=== PATIENT | male | born 1980 | race Caucasian/White ===

== ENCOUNTER 2020-01-03 13:33 | Emergency (ER) | payer SELFPAY ==
[2020-01-03 14:27] VITALS: BP 139/86; PULSE 97; RESP 18; TEMP 36.7; O2SAT 100; BMI 23.3
--- NOTE | 2020-01-03 14:35 | ED_ITS ---
Entered by Marissa Galeana, acting as scribe for Bita Cortes HPI - Headache General: Chief Complaint: Headache Stated Complaint: head pain Time Seen by Provider: 01/03/20 14:34 Source: patient Mode of arrival: ambulatory Limitations: no limitations History of Present Illness: HPI Narrative: 39 yo Male presents to ED with complaint of headache. Pt states that he was seen on November 20 for a head injury but only had and xray of his facial bones done. Pt states that he has had a headache since his surgery and was told to come in to the ED to have a CT scan of his head done to make sure that there is no bleeding in his head. MD elicited complaint: headache Pertinent past history: recent trauma Onset (ago): month(s) Onset description: gradually Location: diffuse Pain scale (0-10): 2 Exacerbating factors: none Relieving factors: nothing Context: recent head injury Associated symptoms: Reports no associated symptoms; Deny chest pain, confusion, diaphoresis, fever(s), malaise, nausea, pre-syncope, rash, syncope or vomiting Treatments prior to arrival: none Review of Systems General: Reports: other (negative unless marked) Const: Denies: fever, chills, body aches, fatigue, malaise or diaphoresis Eyes: Denies: change in vision or blurry vision ENMT: Denies: throat pain, painful swallowing, hoarseness, ear pain, ear discharge, Change in hearing or nasal discharge Card: Denies: chest pain, palpitations, irregular heart rhythm, syncope, pre- syncope, shortness of breath on exertion or shortness of breath when lying down Resp: Denies: shortness of breath, productive cough, non-productive cough, wheezing, coughing up blood or chest congestion GI: Denies: abdominal pain, nausea, vomiting, vomiting blood, coffee grounds in vomit, diarrhea, constipation, cramping, blood in stool or black tarry stool : Denies: flank pain, difficulty urinating, painful urination, urinary frequency, urinary urgency, decreased urine ouput, urinary incontinence or blood in urine Musc: Denies: neck pain, back pain, extremity pain, extremity swelling, joint pain, joint swelling, joint warmth or joint stiffness Skin/Breast: Denies: rash, skin tenderness or yellow skin Neuro: Reports: headache; Denies: numbness in extremities, weakness in extremities, changes in sensation, lack of coordination, difficulty walking, dizziness, vertigo or confusion Endo: Denies: excessive thirst, tired all the time, cold intolerance, excessive sweating, flushing or hot flashes Mikal/Lymph: Denies: easy bruising, easy bleeding, petechiae or enlarged lymph nodes All/Imm: Denies: hives, throat swelling, tongue swelling, facial swelling or acute wheezing PFSH ED PFSH: Statuses (acute, chronic, etc) shown below reflect problem list status as previously entered and may not be historically accurate Social History Smoking and tobacco status: never smoked Physical Exam Const: COMMON NORMALS: no apparent distress, oriented x3, no limitations, healthy appearing and well nourished EXAM LIMITATIONS: no altered mental stat us GENERAL APPEARANCE: cooperative, well kempt and well developed ORIENTATION/CONSCIOUSNESS: Yes awake HENMT: COMMON NORMALS: normocephalic, head/scalp atraumatic, hearing grossly normal bilaterally, external ears normal, EAC's normal, external nose normal and moist oral mucous membranes HEAD & SCALP: normal to inspection, normocephalic and atraumatic FACE & SINUS: normal facial exam and face symmetric NOSE: external nose normal and nares normal EXTERNAL EAR: Yes external ears normal EXTERNAL AUDITORY CANAL: EAC's normal MOUTH: oral and palatal mucosa normal and tongue normal Eye: COMMON NORMALS: PERRL, EOMs intact bilaterally, conjunctivae normal and no scleral icterus GENERAL EYE: normal appearance of both eyes and normal light reflex CONJUNCTIVA: Yes conjunctivae normal SCLERA: sclerae normal CORNEA: Yes corneas normal PUPIL: Yes PERRL DIRECT OPHTHALMOSCOPY: Yes normal light reflex Neck/C-Spine: COMMON NORMALS: full ROM, no lymphadenopathy, supple, no meningeal signs and no JVD GENERAL: Yes normal visual inspection and Yes trachea midline CERVICAL SPINE: Yes cervical ROM normal Chest: COMMONS NORMALS: inspection of chest normal and palpation of chest normal Resp: COMMON NORMALS: normal respiratory effort, no retractions, no use of accessory muscles and clear to auscultation bilaterally EFFORT & INSPECTION: Yes able to speak in complete sentences AUSCULTATION: clear to auscultation bilaterally Cardio: COMMON NORMALS: no JVD, regular rate, regular rhythm, S1 normal heart sound, S2 normal heart sound, no gallops, no clicks, no murmurs and no rub JUGULAR VENOUS DISTENTION: no JVD RATE: regular rate RHYTHM: regular rhythm HEART SOUNDS: S1 normal and S2 normal GI: COMMON NORMALS: soft to palpation, non-tender, no hepatosplenomegaly and no masses INSPECTION: Yes normal to inspection PALPATION: Yes soft and Yes no hepatosplenomegaly : COMMON NORMALS: Yes no CVA tenderness BLADDER/KIDNEY EXAM: Yes no CVA tenderness Back/Pelvis: COMMON NORMALS: no CVA tenderness, thoracic and lumbar spine normal to inspection, no thoracic nor lumbar tenderness and thoraco-lumbar ROM normal Extremity: COMMON NORMALS: normal to inspection, full ROM, normal capillary refill, no joint enlargement, no clubbing, cyanosis or edema and no calf tenderness Neuro: COMMON NORMALS: oriented x3, CN's II-XII intact bilaterally, moves all extremities, no focal motor deficits and no sensory deficits noted MENINGEAL SIGNS: Yes no meningeal signs Psych: COMMON NORMALS: mental status grossly normal, thought process normal, cooperative, affect normal, speech normal and activity/motor behavior normal APPEARANCE: Yes well kempt SPEECH: Yes normal speech THOUGHT PROCESS: normal thought process Skin: COMMON NORMALS: no rashes or lesions noted, skin turgor normal, no jaundice, no petechiae and no mottling GENERAL SKIN EXAM: no rashes or lesions noted and turgor normal Course Vital Signs: Vital signs: Vital Signs Temperature 98.0 F 01/03/20 14:27 Pulse Rate 93 01/03/20 15:58 Respiratory Rate 16 01/03/20 15:58 Blood Pressure 134/60 01/03/20 15:58 Pulse Oximetry 98 01/03/20 15:58 MDM - Headache MDM Narrative: Medical decision making narrative: Looking back on the patient's previous here he did have a CT of his head although he did not think this was the case. It is possible his recurrent headaches are coming from just his facial injuries. He is satisfied that his head CT today is normal. He declines any further evaluation and care and would like to be discharged. He agrees to return should his symptoms change or worsen but at this time he is feeling better and wants to be discharged. Imaging Data^: CT Head: Radiologist's impression: [address] [place] [address] CT Scan Report Signed Patient: Bre Valentin #: [id number] : 1980Acct#:[id number] Age/Sex: 39 / MADM Date: 01/03/20 Loc: ERRoom/Bed: Attending Dr: Ordering Provider/Ordering MD: Bita Cortes DO Date of Service: 01/03/20 Procedure(s): CT head wo con* [id number] Accession Number(s): [id number] Report Number: [id number] WS: [id number] CT HEAD NONCONTRAST HISTORY: POMPA, vision loss s/p injury in Nov 2019 TECHNIQUE: Contiguous axial imaging performed through the brain in 2.5 mm imaging. Bone and soft tissue windows. Sagittal and coronal reformats reviewed. All CT scans at [facility] use at least one of these dose optimization techniques: automated exposure control; mA and/or kV adjustment per patient size (includes targeted exams where dose is matched to clinical indication); or iterative reconstruction. DLP: 837.53 mGy.cm COMPARISON: 11/17/2019 No acute intracranial hemorrhage, midline shift or mass effect. No atrophy or prior infarcts or herniation. Ventricles: Normal size with no hydrocephalus. No inferior displacement of cerebellar tonsils. Paranasal sinuses: Moderate mucoperiosteal thickening throughout the ethmoid air cells bilaterally. Mild mucoperiosteal thickening in the frontal ethmoid recesses and LEFT sphenoid sinus. Mastoid air cells: Well pneumatized. Calvarium and scalp: Skull is intact with no soft tissue edema or swelling. Limited visualization of the orbits and globes and extraocular muscles. CT/CT head wo con* [id number] IMPRESSION: 1. No acute intracranial hemorrhage or edema. 2. Ethmoid sinus disease. Dictated By:Dotty Matson DO Signed By:Dotty Matson DOSigned Date/Time:01/03/20 1523 DD/ 1518 Discharge Plan Discharge Patient Disposition: Home, Self-Care Clinical Impression: Headache Qualifiers: Headache type: unspecified Headache chronicity pattern: chronic headache Intractability: not intractable Qualified Code(s): R51 - Headache Condition: Stable Discharge Orders: Discharge Order (Routine); Ordered 01/03/20 Ordered By: Bita Cortes Referrals: Maeve Garcia FNP [Primary Care Provider] - 1-3 days Discharge Diet: Usual diet Discharge Activity: Increase activity as tolerated Patient Instructions: Acute Headache (ED) Activity Restrictions/Additional Instructions: Please return to the ER immediately for any of the signs or symptoms listed on your discharge instruction sheets, worsening/changing of your symptoms, you are not getting better as quickly as expected, or for ANY other cause or concerns. Discharge Date/Time: 01/03/20 15:58 Coding Level of Care Code ED Technical Sourcing Recruiter for Chg Fwd Exam Problem Focused The documentation recorded by the Kervin beasley Carmen, accurately reflects the service I personally performed and the decisions made by Sophia garcia Eli N Jan 03, 2020 13:33
--- NOTE | 2020-01-03 14:36 | CT_ITS ---
WS: [id number] CT HEAD NONCONTRAST HISTORY: POMPA, vision loss s/p injury in Nov 2019 TECHNIQUE: Contiguous axial imaging performed through the brain in 2.5 mm imaging. Bone and soft tiss ue windows. Sagittal and coronal reformats reviewed. All CT scans at [facility] use at le ast one of these dose optimization techniques: automated exposure control; mA and/or kV adjustment pe r patient size (includes targeted exams where dose is matched to clinical indication); or iterative r econstruction. DLP: 837.53 mGy.cm COMPARISON: 11/17/2019 No acute intracranial hemorrhage, midline shift or mass effect. No atrophy or prior infarcts or herniation. Ventricles: Normal size with no hydrocephalus. No inferior displacement of cerebellar tonsils. Paranasal sinuses: Moderate mucoperiosteal thickening throughout the ethmoid air cells bilaterally. M ild mucoperiosteal thickening in the frontal ethmoid recesses and LEFT sphenoid sinus. Mastoid air cells: Well pneumatized. Calvarium and scalp: Skull is intact with no soft tissue edema or swelling. Limited visualization of the orbits and globes and extraocular muscles. CT/CT head wo con* [id number] IMPRESSION: 1. No acute intracranial hemorrhage or edema. 2. Ethmoid sinus disease.
--- NOTE | 2020-01-03 15:16 | PC.NURSE ---
pt return back from CT
[2020-01-03 15:58] VITALS: BP 134/60; PULSE 93; RESP 16; O2SAT 98
== END 2020-01-03 15:58 | disposition home or self-care (01) ==
PROVIDERS: Emergency Provider Emergency Medicine; Family Provider Nurse Practitioner; PCP Nurse Practitioner
DX: R51 Headache (principal)
CPT/HCPCS: 70450; 99281; 99282

== ENCOUNTER 2020-02-26 12:59 | Emergency (ER) | payer SELFPAY ==
[2020-02-26 13:05] VITALS: BP 137/98; PULSE 100; RESP 17; TEMP 36.7; O2SAT 100; BMI 24.1
--- NOTE | 2020-02-26 13:17 | W.ED.EXTPRO ---
HPI - Extremity Problem General: Chief complaint: Extremity Injury, Upper Stated complaint: arm lac Time Seen by Provider: 02/26/20 13:06 Review of Systems General: Reports: 10 or more systems reviewed and unremarkable except in HPI and below PFSH ED PFSH: Social History Smoking and tobacco status: never smoked Physical Exam Skin: TRAUMA: laceration (4mm) puncture Procedures Laceration Laceration 1: Site: upper extremity Side (If applicable): left Size (cm): 0.4 Description: contaminated and other Depth: simple, single layer Local Anesthetic: lidocaine 1% and with epi Amount of anesthesia used (mL): 4 Pre-repair: wound explored, irrigated extensively and deep structures intact Skin layer closed with: nylon Size (cm): 4-0 Number of sutures: 2 Technique: simple, interrupted Course Vital Signs: Vital signs: Vital Signs Temperature 98.1 F 02/26/20 13:05 Pulse Rate 100 02/26/20 13:05 Respiratory Rate 17 02/26/20 13:05 Blood Pressure 137/98 02/26/20 13:05 Pulse Oximetry 100 02/26/20 13:05 Discharge Plan Discharge Patient Disposition: Home, Self-Care Clinical Impression: Laceration of elbow, left Qualifiers: Encounter type: initial encounter Qualified Code(s): S51.012A - Laceration without foreign body of left elbow, initial encounter Condition: Stable Prescriptions: New ciprofloxacin HCl 500 mg tablet 500 mg PO BID Qty: 20 RF: 0 Tylenol-Codeine #3 300-30 mg tablet 1 tab PO Q4H PRN (Reason: pain) Qty: 10 RF: 0 Discharge Orders: Discharge Order (Routine); Ordered 02/26/20 Ordered By: Jeramy Alicea Referrals: Maeve Garcia FNP [Primary Care Provider] - Patient Instructions: Laceration (ED) Coding Level of Care Code ED Service Now Developer for Que Daly Exam Problem Focused
[2020-02-26] MEDS: tetanus-diphtheria tox (adult) 0.5 mL SDV IM (13:55)
[2020-02-26] MEDS: ceFAZolin 1,000 mg SDV 1000 MG IM (13:55)
[2020-02-26 14:08] VITALS: BP 124/83; PULSE 80; O2SAT 98
[2020-02-26 14:10] VITALS: BP 126/86; PULSE 75; RESP 16; O2SAT 98
== END 2020-02-26 14:12 | disposition home or self-care (01) ==
LOC: ER 13:42
PROVIDERS: Emergency Provider Family Medicine; Family Provider Nurse Practitioner; PCP Nurse Practitioner
DX: S51.012A Laceration without foreign body of left elbow, initial encounter (principal); X58.XXXA Exposure to other specified factors, initial encounter; Z23 Encounter for immunization
CPT/HCPCS: 12001; 12345; 90471; 90714; 96372; 99281; 99283; J0690

== ENCOUNTER 2020-03-03 19:00 | Emergency (ER) | payer SELFPAY ==
[2020-03-03 19:04] VITALS: BP 147/88; PULSE 85; RESP 19; TEMP 36.7; O2SAT 98; BMI 23.3
--- NOTE | 2020-03-03 19:04 | ED_ITS ---
HPI - Skin/Abscess/Foreign Bdy General: Chief complaint: Wound/Laceration Stated complaint: wants stitches checked Time Seen by Provider: 03/03/20 19:03 Source: patient Mode of arrival: ambulatory Limitations: no limitations History of Present Illness: HPI narrative: Patient comes in for evaluation of laceration to the left elbow. Patient reports that he noticed some increased bruising from an injury that occurred last week. Patient appears well. Patient denies any fever. Review of Systems General: Reports: 10 or more systems reviewed and unremarkable except in HPI and below Skin/Breast: Reports: changes in skin color PFSH ED PFSH: Social History Smoking and tobacco status: never smoked Physical Exam Const: COMMON NORMALS: no apparent distress and oriented x3 GENERAL APPEARANCE: cooperative HENMT: COMMON NORMALS: normocephalic, TM's normal bilaterally and external nose normal HEAD & SCALP: normal to inspection and normocephalic NOSE: external nose normal TYMPANIC MEMBRANE: TM's normal bilaterally MOUTH: oral and palatal mucosa normal THROAT: posterior oropharynx normal Eye: GENERAL EYE: normal appearance of both eyes Neck/C-Spine: COMMON NORMALS: full ROM Lymph: LYMPHATIC: no lymphadenopathy noted Chest: COMMONS NORMALS: inspection of chest normal Resp: COMMON NORMALS: normal respiratory effort EFFORT & INSPECTION: Yes able to speak in complete sentences Cardio: COMMON NORMALS: regular rate and regular rhythm RATE: regular rate RHYTHM: regular rhythm GI: COMMON NORMALS: non-tender : COMMON NORMALS: Yes no CVA tenderness BLADDER/KIDNEY EXAM: Yes no CVA tenderness Back/Pelvis: COMMON NORMALS: no CVA tenderness and thoracic and lumbar spine normal to inspection Extremity: COMMON NORMALS: normal to inspection Neuro: COMMON NORMALS: oriented x3 and moves all extremities Psych: COMMON NORMALS: mental status grossly normal and cooperative Skin: NARRATIVE SKIN EXAM: Healing superficial laceration is noted to the left inner upper arm. Patient has an area of ecchymosis that has been circled with a pink marker and then a larger area is noted around that suggesting resolution of discoloration. When questioned about this patient states his at first marked on it a few days ago and then his kids and marked on again today noticing a decrease in the color or discoloration. Patient was concerned due to some increased tenderness today. Course Vital Signs: Vital signs: Vital Signs Temperature 98.1 F 03/03/20 19:04 Pulse Rate 85 03/03/20 19:04 Respiratory Rate 19 H 03/03/20 19:04 Blood Pressure 147/88 03/03/20 19:04 Pulse Oximetry 98 03/03/20 19:04 MDM - Skin/Abscess/Foreign Bdy MDM Narrative: Medical decision making narrative: Patient comes in for concerns of wound changes. On exam patient has some ecchymosis to the area that seems to be decreasing in size. Patient has intact sutures and a well approximated wound. Differential diagnosis includes wound infection, contusion, malingering. Patient has a small contusion to the area that seems to be resolving. No warmth is noted to the area suggesting abscess or infection. Recommended treatment for a contusion, continue antibiotics as directed, and follow-up in 3 to 5 days for suture removal. Discharge Plan Discharge Patient Disposition: Home, Self-Care Clinical Impression: Contusion of elbow Qualifiers: Encounter type: initial encounter Laterality: left Qualified Code(s): S50.02XA - Contusion of left elbow, initial encounter Laceration of elbow, left Qualifiers: Encounter type: subsequent encounter Qualified Code(s): S51.012D - Laceration without foreign body of left elbow, subsequent encounter Condition: Stable Prescriptions: No Action ciprofloxacin HCl 500 mg tablet 500 mg PO BID Qty: 20 RF: 0 Tylenol-Codeine #3 300-30 mg tablet 1 tab PO Q4H PRN (Reason: pain) Qty: 10 RF: 0 Discharge Orders: Discharge Order (Routine); Ordered 03/03/20 Ordered By: Sg Harris Referrals: Maeve Garcia FNP [Primary Care Provider] - Discharge Diet: Usual diet Discharge Activity: Increase activity as tolerated Patient Instructions: Contusion in Adults (ED) Activity Restrictions/Additional Instructions: Activity as tolerated Drink plenty of fluids Continue antibiotics Sutures out in 3-5 days Follow-up with primary care as needed Return to ER as needed for fever or worsening symptoms Discharge Date/Time: 03/03/20 19:13 Coding Level of Care Code ED Raimann Machine Operator for Que Fwkvng Exam Comprehensive
== END 2020-03-03 19:13 | disposition home or self-care (01) ==
PROVIDERS: Emergency Provider Nurse Practitioner Family; Family Provider Nurse Practitioner; PCP Nurse Practitioner
DX: S51.012D Laceration without foreign body of left elbow, subsequent encounter (principal); S50.02XD Contusion of left elbow, subsequent encounter; X58.XXXD Exposure to other specified factors, subsequent encounter
CPT/HCPCS: 12345; 99281

== ENCOUNTER 2020-11-09 08:30 | Emergency (ER) | payer SELFPAY ==
[2020-11-09 08:31] VITALS: BP 112/82; PULSE 101; RESP 18; TEMP 36.5; O2SAT 96; BMI 24.1
--- NOTE | 2020-11-09 08:37 | ED_ITS ---
HPI - Back Pain/Injury General: Chief Complaint: Back Pain/Injury Stated Complaint: Fall/Back Injury Time Seen by Provider: 11/09/20 08:34 Source: patient Mode of arrival: ambulatory Limitations: no limitations History of Present Illness: HPI Narrative: 39 yo male patient presents to the ER with neck and back pain. states he fell a week ago landing across his bathtub on his back. Pt did not hit head or have any LOC pt is not on blood thinners. Pt states pain and stiffness have worsened. Pt denies any numbness or tingling or loss of sensation. Pt denies loss of bowel or bladder, denies hx of HTN, cancer or IV drug abuse. Associated symptoms: Deny abdominal pain, chills, difficulty walking, dysuria, fever(s), nausea or vomiting Review of Systems Const: Denies: fever(s), chills, body aches or change in appetite Eyes: Denies: change in vision or blurry vision ENMT: Denies: throat pain, uvular edema or dental pain Card: Denies: chest pain, palpitations, irregular heart rhythm, lightheadedness or dyspnea on exertion Resp: Denies: dyspnea, productive cough, non-productive cough, wheezing or pain on inspiration GI: Denies: abdominal pain, nausea, vomiting, diarrhea or constipation : Denies: flank pain, difficulty urinating, dysuria or urinary frequency Musc: Reports: neck pain and back pain Neuro: Denies: headache(s), numbness in extremities, weakness in extremities, sensory changes, lack of coordination or difficulty walking PFS ED PFSH: Social History Smoking and tobacco status: never smoked Physical Exam Const: COMMON NORMALS: no acute distress, patient oriented x3, healthy appearing, alert and well nourished GENERAL APPEARANCE: cooperative, comfortable, well kempt and well developed; not ill appearing ORIENTATION/CONSCIOUSNESS: Yes awake, Yes oriented to person, Yes oriented to place and Yes oriented to time HENMT: COMMON NORMALS: normocephalic, atraumatic, hearing grossly normal bilaterally, external ears normal, EAC's normal, TM's normal bilaterally, Normal external nose present, Normal nasal mucous membranes and turbinates present and moist oral mucous membranes HEAD & SCALP: normal to inspection, normocephalic and atraumatic FACE & SINUS: normal facial exam, sinuses nontender and face symmetric NOSE: Normal external nose present, Normal nares present, Normal nasal mucous membranes and turbinates present, No nasal discharge present and Abnormal external nose present EXTERNAL EAR: Yes external ears normal and Yes mastoids normal EXTERNAL AUDITORY CANAL: EAC's normal TYMPANIC MEMBRANE: TM's normal bilaterally MOUTH: Normal oral and palatal mucosa present, lip normal, tongue normal and Normal salivary glands and ducts present THROAT: posterior oropharynx normal, tonsils normal and uvula midline; no uvular edema Eye: COMMON NORMALS: Equal, round and reactive pupils present, EOMs intact bilaterally, conjunctivae normal, no scleral icterus and no papilledema GENERAL EYE: appearance normal, both eyes and all related structures EYELID: eyelids normal CONJUNCTIVA: Yes conjunctivae normal SCLERA: sclerae normal CORNEA: Yes corneas normal PUPIL: Yes Equal, round and reactive pupils present DIRECT OPHTHALMOSCOPY: Yes no papilledema Neck/C-Spine: COMMON NORMALS: full ROM, no lymphadenopathy, supple, no meningeal signs, no JVD and Thyroid normal GENERAL: Yes normal visual insp ection and Yes trachea midline THYROID: Thyroid normal CERVICAL SPINE: Yes cervical ROM normal and Yes Cervical spine tenderness NECK IMAGES: 1. pain with palpation Lymph: LYMPHATIC: no lymphadenopathy noted and no lymphedema noted Chest: COMMONS NORMALS: normal inspection of the chest and normal palpation of entire chest wall Resp: COMMON NORMALS: normal respiratory effort, No retractions, No use of accessory muscles and clear to auscultation bilaterally EFFORT & INSPECTION: Yes able to speak in complete sentences and Yes symmetric chest movement AUSCULTATION: clear to auscultation bilaterally Cardio: COMMON NORMALS: no JVD, regular rate and regular rhythm RATE: regular rate RHYTHM: regular rhythm GI: COMMON NORMALS: Normal to inspection, nondistended, normoactive bowel sounds present, Soft to palpation, non-tender, No hepatosplenomegaly present, no masses and no bruits INSPECTION: Yes normal to inspection AUSCULTATION: Yes normoactive bowel sounds PALPATION: Yes Soft to palpation and Yes No hepatosplenomegaly present PERCUSSION: normal to percussion RECTAL EXAM: Yes deferred : COMMON NORMALS: Yes no CVA tenderness BLADDER/KIDNEY EXAM: Yes no CVA tenderness Back/Pelvis: COMMON NORMALS: no CVA tenderness, thoracic and lumbar spine normal to inspection, thoraco-lumbar ROM normal and straight leg raise negative bilaterally THORACIC SPINE/UPPER BACK: Yes normal to inspection and Yes t horacic spinal tenderness LUMBAR SPINE/LOWER BACK: Yes normal to inspection Extremity: COMMON NORMALS: normal to inspection, full ROM and capillary refill normal GENERAL: Yes normal exam except as noted Neuro: COMMON NORMALS: patient oriented x3, CN's II-XII intact bilaterally, moves all extremities, no focal motor deficits, no sensory deficits noted, deep tendon reflexes 2+ bilaterally and gait normal SENSORIUM/ORIENTATION: Yes alert, Yes oriented to person, Yes oriented to place and Yes oriented to time MENINGEAL SIGNS: Yes no meningeal signs CRANIAL NERVES: Yes CN normal except as noted SPEECH: speech normal GAIT: Yes Normal gait present SENSORY EXAM: Yes extremities MOTOR EXAM: 5/5 motor strength present throughout Psych: COMMON NORMALS: mental status grossly normal, Normal thought process present, cooperative, normal affect, speech normal, activity/motor behavior normal, denies hallucinations, denies homicidal ideation and denies suicidal ideation APPEARANCE: Yes grossly normal and Yes well kempt ATTITUDE: Yes calm ACTIVITY/MOTOR BEHAVIOR: Yes appropriate eye contact SPEECH: Yes normal speech THOUGHT PROCESS: Normal thought process present THOUGHT CONTENT: Yes Normal thought content present ATTENTION/CONCENTRATION: Yes attention grossly intact MEMORY/COGNITION: Yes memory grossly intact INSIGHT: Good insight present (Psych) JUDGEMENT: Good judgement present (Psych) Skin: COMMON NORMALS: no rashes or lesions noted, no wounds, turgor normal, no jaundice, no petechiae and no mottling GENERAL SKIN EXAM: no rashes or lesions noted and turgor normal Course Vital Signs: Vital signs: Vital Signs Temperature 97.7 F 11/09/20 08:31 Pulse Rate 101 H 11/09/20 08:31 Respiratory Rate 18 11/09/20 08:31 Blood Pressure 112/82 11/09/20 08:31 Pulse Oximetry 96 11/09/20 08:31 MDM - Back Pain/Injury 2 MDM Narrative: Medical decision making narrative: 39 yo male patient presents to the ER with neck and back pain. states he fell a week ago landing across his bathtub on his back. Pt did not hit head or have any LOC pt is not on blood thinners. Pt states pain and stiffness have worsened. Pt denies any numbness or tingling or loss of sensation. Pt denies loss of bowel or bladder, denies hx of HTN, cancer or IV drug abuse. Pt is well appearing non toxic and in no acute distress. Given patient physical exam and history I did ct cervical and thoracic spine. there are no focal deficits noted. [employer] [address] [address] Scan Report Signed Patient: Bre Valentin #: [id number] : 1980Acct#:[id number] Age/Sex: 39 / MADM Date: 11/09/20 Loc: ERRoom/Bed: Attending Dr: Ordering Provider/Ordering MD: Tammie Mitchell NP Date of Service: 11/09/20 Procedure(s): CT cervical spin wo con* [id number] Accession Number(s): [id number] Report Number: [id number] PROCEDURE INFORMATION: Exam: CT Cervical Spine Without Contrast Exam date and time: 11/09/2020 8:42 AM Age: 39 years old Clinical indication: Injury or trauma; Fall; Blunt trauma TECHNIQUE: Imaging protocol: Computed tomography images of the cervical spine without contrast. Radiation optimization: All CT scans at this facility use at least one of these dose optimization techniques: automated exposure control; mA and/or kV adjustment per patient size (includes targeted exams where dose is matched to clinical indication); or iterative reconstruction. COMPARISON: CT Cervical Spine wo* [id number] 11/17/2019 5:19 AM RADIATION DOSE METRICS: Total DLP (mGy-cm): 520.45 FINDINGS: Bones/joints: No evidence of acute fracture. No subluxation. Discs/Spinal canal/Neural foramina: There are unchanged facet osteophytes greatest right C3-C4 with right neural foraminal narrowing. Prevertebral Space: No evidence of prevertebral soft tissue swelling. Soft tissues: Unremarkable. Sinuses: There is mucosal thickening in bilateral maxillary sinuses. There is fluid in right maxillary sinus. There are polypoid densities in bilateral sphenoid sinus which may represent retention cysts or polyps. No vertebral subluxation. Lungs: Lung apices are unremarkable for acute finding. CT/CT cervical spin wo con* [id number] IMPRESSION: 1. No evidence of acute fracture. 2. Sinus findings as described. Patient: Bre Valentin JRUnit #: [id number] : 1980Acct#:[id number] Age/Sex: 39 / MADM Date: 11/09/20 Loc: ERRoom/Bed: Attending Dr: Ordering Provider/Ordering MD: Tammie Mitchell NP Date of Service: 11/09/20 Procedure(s): CT thoracic spin wo con* [id number] Accession Number(s): [id number] Report Number: [id number] PROCEDURE INFORMATION: Exam: CT Thoracic Spine Without Contrast Exam date and time: 11/09/2020 9:23 AM Age: 39 years old Clinical indication: Injury or trauma; Fall; Blunt trauma (contusions or hematomas) TECHNIQUE: Imaging protocol: Computed tomography images of the thoracic spine without contrast. Radiation optimization: All CT scans at this facility use at least one of these dose optimization techniques: automated exposure control; mA and/or kV adjustment per patient size (includes targeted exams where dose is matched to clinical indication); or iterative reconstruction. COMPARISON: No relevant prior studies available. RADIATION DOSE METRICS: Total DLP (mGy-cm): 1178.84 FINDINGS: Vertebrae: No acute fracture. Mild chronic anterior wedging of T7. Normal alignment. Mild thoracic spondylosis with anterior spurring. No spinal stenosis or neural foraminal narrowing. Discs/Spinal canal/Neural foramina: See Vertebrae finding. Soft tissues: Unremarkable. Lymph nodes: There are calcified right hilar region lymph nodes compatible with previous granulomatous exposure. CT/CT thoracic spin wo con* [id number] IMPRESSION: No acute fracture. Pt was given toradol and decadron while here int he ER and did have clinical iprovement with pain I will send patient home with NSAIDS and muscle relaxer and have follow up with PCP. return precautions advised and home care reviewed Discharge Plan Discharge Clinical Impression: Thoracic back pain Qualifiers: Chronicity: acute Back pain laterality: bilateral Qualified Code(s): M54.6 - Pain in thoracic spine Condition: Stable Prescriptions: New cyclobenzaprine 10 mg tablet 10 mg PO TID PRN (Reason: muscle spasm) Qty: 14 RF: 0 indomethacin 50 mg capsule 50 mg PO TID 10 Days Qty: 30 RF: 0 No Action Kris Back and Body 500-32.5 mg Tablet 2 tab PO PRN RF: 0 Discharge Orders: Discharge ED (Routine); Ordered 11/09/20 Ordered By: Tammie Mitchell Referrals: Maeve Garcia FNP [Primary Care Provider] - Discharge Diet: Advance as tolerated Discharge Activity: Increase activity as tolerated Activity Restrictions/Additional Instructions: Please take meds as prescribed. Please do not drive or operate heavy machinery while taking Flexeril Please do not lift more than 20 pounds for the next 2 weeks Please return to the ER with any worsening of symptoms such a s loss of bowel or bladder numbness tingling, fever or any other concerning symptoms Please follow up with PCP as discussed Coding Level of Care Code ED Fermenter Wine for Que Fwd Exam Comprehensive
--- NOTE | 2020-11-09 08:40 | CTR_ITS ---
PROCEDURE INFORMATION: Exam: CT Cervical Spine Without Contrast Exam date and time: 11/09/2020 8:42 AM Age: 39 years old Clinical indication: Injury or trauma; Fall; Blunt trauma TECHNIQUE: Imaging protocol: Computed tomography images of the cervical spine without contrast. Radiation optimization: All CT scans at this facility use at least one of these dose optimization techniques: automated exposure control; mA and/or kV adjustment per patient size (includes targeted exams where dose is matched to clinical indication); or iterative reconstruction. COMPARISON: CT Cervical Spine wo* [id number] 11/17/2019 5:19 AM RADIATION DOSE METRICS: Total DLP (mGy-cm): 520.45 FINDINGS: Bones/joints: No evidence of acute fracture. No subluxation. Discs/Spinal canal/Neural foramina: There are unchanged facet osteophytes greatest right C3-C4 with right neural foraminal narrowing. Prevertebral Space: No evidence of prevertebral soft tissue swelling. Soft tissues: Unremarkable. Sinuses: There is mucosal thickening in bilateral maxillary sinuses. There is fluid in right maxillary sinus. There are polypoid densities in bilateral sphenoid sinus which may represent retention cysts or polyps. No vertebral subluxation. Lungs: Lung apices are unremarkable for acute finding. CT/CT cervical spin wo con* [id number] IMPRESSION: 1. No evidence of acute fracture. 2. Sinus findings as described. Radiation Dose CTDIVOL = (mGy): DLP = 520.45 (mGy-cm)
--- NOTE | 2020-11-09 08:40 | CTR_ITS ---
PROCEDURE INFORMATION: Exam: CT Thoracic Spine Without Contrast Exam date and time: 11/09/2020 9:23 AM Age: 39 years old Clinical indication: Injury or trauma; Fall; Blunt trauma (contusions or hematomas) TECHNIQUE: Imaging protocol: Computed tomography images of the thoracic spine without contrast. Radiation optimization: All CT scans at this facility use at least one of these dose optimization techniques: automated exposure control; mA and/or kV adjustment per patient size (includes targeted exams where dose is matched to clinical indication); or iterative reconstruction. COMPARISON: No relevant prior studies available. RADIATION DOSE METRICS: Total DLP (mGy-cm): 1178.84 FINDINGS: Vertebrae: No acute fracture. Mild chronic anterior wedging of T7. Normal alignment. Mild thoracic spondylosis with anterior spurring. No spinal stenosis or neural foraminal narrowing. Discs/Spinal canal/Neural foramina: See Vertebrae finding. Soft tissues: Unremarkable. Lymph nodes: There are calcified right hilar region lymph nodes compatible with previous granulomatous exposure. CT/CT thoracic spin wo con* [id number] IMPRESSION: No acute fracture. Radiation Dose CTDIVOL = (mGy): DLP = 1178.84 (mGy-cm)
[2020-11-09] MEDS: dexamethasone 4 mg/mL INJ 10 MG IM (08:50)
[2020-11-09] MEDS: ketorolac 60 mg/2 mL INJ IM (08:52)
[2020-11-09 10:35] VITALS: BP 109/53; PULSE 86; RESP 18; O2SAT 98
== END 2020-11-09 10:37 ==
PROVIDERS: Emergency Provider Registered Nurse; PCP Nurse Practitioner
DX: M54.6 Pain in thoracic spine (principal)
CPT/HCPCS: 12345; 72125; 72128; 96372; 96375; 99281; 99283; J1100; J1885

== ENCOUNTER 2021-03-09 19:17 | Emergency (ER) | payer SELFPAY ==
[2021-03-09 19:20] VITALS: BP 131/88; PULSE 90; RESP 16; TEMP 36.3; O2SAT 99; BMI 25.0
--- NOTE | 2021-03-09 20:23 | ED_ITS ---
HPI - Back Pain/Injury General: Chief Complaint: Back Pain/Injury Stated Complaint: left side abd. pain Time Seen by Provider: 03/09/21 20:06 History of Present Illness: HPI Narrative: Patient is a 40-year-old male comes to the ED with left rib pain. Pain started approximately 1 week ago. It is located on the left side of the chest in the rib area. Says it hurts whenever he does any core movements. He denies any acute trauma or injury. 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 Denies any chest pain or shortness of breath. He does say if he takes a deep breath he does feel some pain in his left ribs. Denies any bladder or bowel symptoms. Says he has a history of kidney stones but says this pain feels a lot different than a kidney stone. Associated symptoms: Deny abdominal pain, chills, dysuria, fatigue, fever(s), hematuria, nausea or vomiting Review of Systems Const: Denies: fever(s), chills or fatigue Eyes: Denies: change in vision or eye discomfort ENMT: Denies: throat pain, odynophagia, nasal discharge or nasal congestion Card: Denies: chest pain, palpitations, edema, swelling of feet/ankles, dyspnea on exertion or orthopnea Resp: Reports: pain on inspiration (Left ribs); Denies: dyspnea, productive cough or non-productive cough GI: Denies: abdominal pain, nausea, vomiting, diarrhea, constipation or hematochezia : Denies: flank pain, difficulty urinating, dysuria or hematuria Musc: Reports: back pain (Left side mid and upper back pain.); Denies: neck pain or extremity swelling Skin/Breast: Denies: rash or new lesions Neuro: Denies: headache(s), numbness in extremities or weakness in extremities PFS ED PFSH: Social History Smoking and tobacco status: never smoked Physical Exam Const: COMMON NORMALS: no acute distress, patient oriented x3, healthy appearing and alert GENERAL APPEARANCE: cooperative and comfortable HENMT: COMMON NORMALS: normocephalic HEAD & SCALP: normocephalic MOUTH: Normal oral and palatal mucosa present THROAT: posterior oropharynx normal and uvula midline Neck/C-Spine: COMMON NORMALS: supple GENERAL: Yes normal visual inspection Chest: CHEST: Yes tenderness rib left mid-axillary line involving the 9th rib, involving the 10th rib, involving the 11th rib and involving the 12th rib Resp: COMMON NORMALS: normal respiratory effort, No retractions, No use of accessory muscles and clear to auscultation bilaterally AUSCULTATION: clear to auscultation bilaterally Cardio: COMMON NORMALS: regular rate, regular rhythm, S1 normal heart sound present, S2 normal heart sound present, No gallops present (Cardio), No clicks present (Cardio), No murmurs present (Cardio) and Peripheral pulses 2+ throughout RATE: regular rate RHYTHM: regular rhythm HEART SOUNDS: S1 normal heart sound present and S2 normal heart sound present PERIPHERAL PULSES: Peripheral pulses 2+ throughout GI: COMMON NORMALS: Normal to inspection, nondistended, normoactive bowel sounds present, Soft to palpation, non-tender and no masses PALPATION: Yes Soft to palpation : COMMON NORMALS: Yes no CVA tenderness BLADDER/KIDNEY EXAM: Yes no CVA tenderness Back/Pelvis: COMMON NORMALS: no CVA tenderness THORACIC SPINE/UPPER BACK: Yes other soft tissue findings Other thoracic soft tissue findings laterality: left Left other thoracic soft tissue findings details: tenderness Extremity: COMMON NORMALS: normal to inspection Neuro: COMMON NORMALS: patient oriented x3 and moves all extremities SENSORIUM/ORIENTATION: Yes alert Skin: GENERAL SKIN EXAM: dry skin Course Vital Signs: Vital signs: Vital Signs Temperature 97.4 F L 03/09/21 19:20 Pulse Rate 97 03/09/21 21:42 Respiratory Rate 16 03/09/21 19:20 Blood Pressure 127/84 03/09/21 21:42 Pulse Oximetry 98 03/09/21 21:42 MDM - Back Pain/Injury MDM Narrative: Medical decision making narrative: Patient is a 40-year-old male who comes to the ED with left rib and left upper back pain. Patient denies any injury or trauma to cause pain and it has been going on for the past week. Denies any other symptoms such as chest pain, shortness of breath, fever, chills, nausea/vomiting, abdominal pain, bowel or bladder symptoms. Patient does have a job that requires a lot of physical labor and lifting things. Exam is remarkable for some lower left rib tenderness to palpation. He also has some left thoracic back soft tissue tenderness. Chest x-ray showed no acute fracture s or findings. I placed an order with case management for patient to be referred to a PCP Patient did have some stool in his large intestine which could be causing some of his pain due to constipation. Patient was diagnosed with musculoskeletal pain and constipation and discharged home with a prescription for naproxen and Robaxin and MiraLAX. I told the case management will contact him in the next several days to set up an appointment with her primary care physician for follow-up. Return to ED precautions given. Patient understood agree with plan. Imaging Data^: CXR: Attestation: I personally reviewed and interpreted this imaging study as follows: My impression: No acute findings. Patient does seem to have some stool and large intestine that is present likely some constipation findings. Discharge Plan Discharge Patient Disposition: Home Clinical Impression: Musculoskeletal pain Constipation Qualifiers: Constipation type: slow transit constipation Qualified Code(s): K59.01 - Slow transit constipation Condition: Stable Prescriptions: New Robaxin-750 750 mg tablet 750 mg PO Q8H Qty: 20 RF: 0 Miralax 17 gram/dose powder 17 g PO DAILY PRN (Reason: constipation) Qty: 119 RF: 0 Naprosyn 500 mg tablet 500 mg PO BID PRN (Reason: pain) Qty: 20 RF: 0 No Action Kris Back and Body 500-32.5 mg Tablet 2 tab PO PRN RF: 0 Discharge Orders: Discharge ED (Routine); Ordered 03/09/21 Ordered By: Miguelangel Paez Referrals: Maeve Garcia FNP [Primary Care Provider] - Discharge Diet: Regular Discharge Activity: Increase activity as tolerated Patient Instructions: Constipation (ED), High Fiber Diet (ED), Musculoskeletal Pain (ED) Activity Restrictions/Additional Instructions: Follow-up with medical provider as directed. Case management will be contacting you in the next several days set up an appointment with primary care physician. Take medications as prescribed. Robaxin is a muscle relaxer and can cause some drowsiness so take at night before bed. Like cold pack on sore area and stretch daily. Return to the ER or your medical provider if condition worsens. Please read and understand discharge instructions. If any questions, please ask. Coding Level of Care Code ED Synchronizer for Que Fwd Exam Comprehensive
--- NOTE | 2021-03-09 20:30 | XRR_ITS ---
PROCEDURE INFORMATION: Exam: XR Left Ribs with PA Chest Exam date and time: 03/09/2021 8:34 PM Age: 40 years old Clinical indication: Chest wall pain; Patient HX: Left sided flank pain; Additional info: Left rib pain TECHNIQUE: Imaging protocol: XR Left ribs with PA chest. Views: 3 views COMPARISON: No relevant prior studies available. FINDINGS: Lungs: Unremarkable. No consolidation. Pleural spaces: Unremarkable. No pleural effusion. No pneumothorax. Heart/Mediastinum: Unremarkable. No cardiomegaly. Bones/joints: Subtle irregularity of the 5th rib laterally. Possible minimally displaced fracture. Correlate regarding tenderness. XR/XR ribs LT mn 3V w CXR1V [id number] IMPRESSION: Subtle irregularity of the 5th rib laterally. Possible minimally displaced fracture. Correlate regarding tenderness.
[2021-03-09] MEDS: ibuprofen 800 mg tablet PO (20:35)
[2021-03-09 21:42] VITALS: BP 127/84; PULSE 97; O2SAT 98
--- NOTE | 2021-03-10 14:18 | DCPLANNER ---
manager discovery had message to speak with patient about getting established with a primary care physician. manager discovery called phone number [phone], unable to speak with patient at this time, a voicemail was left for patient to return caser phone call.
== END 2021-03-09 21:41 | disposition home or self-care (01) ==
PROVIDERS: Emergency Provider Physician Assistant; PCP Nurse Practitioner
DX: K59.01 Slow transit constipation (principal); R07.81 Pleurodynia
CPT/HCPCS: 71101; 99283

== ENCOUNTER 2021-03-17 09:54 | Emergency (ER) | payer SELFPAY ==
[2021-03-17 10:05] VITALS: BP 135/95; PULSE 78; RESP 17; TEMP 36; O2SAT 99; BMI 25.0
--- NOTE | 2021-03-17 10:56 | W.ED.ABDPA2 ---
HPI - Abdominal Pain General: Chief Complaint: Abdominal Pain Stated Complaint: left upper abd pain/flank pain Time Seen by Provider: 03/17/21 10:41 History of Present Illness: HPI narrative: Patient is a 40-year-old male comes to the ED with left upper quadrant abdominal pain. Patient was seen here for same complaint back on March 09. Patient says approximately 3 weeks ago he started developing this constant aching pain in left upper abdomen and left lower rib area. He denies any trauma or injury to cause symptoms. He says the pain also goes around to his back as well. He currently rates the pain a 5 out of 10. He has been taking tcux-row-pwydrza pain meds and it has not brought in any relief. Patient says he has had normal bowel movements. After his last visit on March 09 he was sent home with a prescription for muscle relaxer, necrosis and and MiraLAX. He says he has been taking those meds and they have not helped current symptoms. He says that last night thinks he developed a subjective fever and chills. He states the pain is severe enough to wake him up sometimes at night. Denies any chest pain, shortness of breath, nausea/vomiting, dysuria, hematuria, diarrhea, constipation, blood in the stool. Associated Symptoms: Denies chills, constipation, diarrhea, dysuria, fever(s), hematochezia, hematuria, nausea and vomiting Review of Systems Const: Denies: fever(s), chills or fatigue Eyes: Denies: change in vision or eye discomfort ENMT: Denies: throat pain, odynophagia, nasal discharge or nasal congestion Card: Reports: other (Left lower rib pain); Denies: chest pain, palpitations, edema, swelling of feet/ankles, dyspnea on exertion or orthopnea Resp: Denies: dyspnea, productive cough or non-productive cough GI: Reports: abdominal pain (Left upper quadrant.); Denies: nausea, vomiting, diarrhea, constipation or hematochezia : Denies: flank pain, difficulty urinating, dysuria or hematuria Musc: Denies: neck pain, back pain or extremity swelling Skin/Breast: Denies: rash or new lesions Neuro: Denies: headache(s), numbness in extremities or weakness in extremities PFS ED PFSH: Social History Smoking and tobacco status: never smoked Physical Exam Const: COMMON NORMALS: no acute distress, patient oriented x3, healthy appearing and alert GENERAL APPEARANCE: cooperative and comfortable HENMT: COMMON NORMALS: normocephalic HEAD & SCALP: normocephalic MOUTH: Normal oral and palatal mucosa present THROAT: posterior oropharynx normal and uvula midline Neck/C-Spine: COMMON NORMALS: supple GENERAL: Yes normal visual inspection Chest: CHEST: Yes tenderness rib left anterior-axillary line involving the 9th rib, involving the 10th rib, involving the 11th rib and involving the 12th rib Resp: COMMON NORMALS: normal respiratory effort, No retractions, No use of accessory muscles and clear to auscultation bilaterally AUSCULTATION: clear to auscultation bilaterally and crackles Laterality: left (light crackling heard at base of left lung) Cardio: COMMON NORMALS: regular rate, regular rhythm, S1 normal heart sound present, S2 normal heart sound present, No gallops present (Cardio), No clicks present (Cardio), No murmurs present (Cardio) and Peripheral pulses 2+ throughout RATE: regular rate RHYTHM: regular rhythm HEART SOUNDS: S1 normal heart sound present and S2 normal heart sound present PERIPHERAL PULSES: Peripheral pulses 2+ throughout GI: COMMON NORMALS: Normal to inspection, nondistended, normoactive bowel sounds present, Soft to palpation and no masses PALPATION: Yes Soft to palpation and Yes Tenderness to palpation present (GI) Details: LUQ : COMMON NORMALS: Yes no CVA tenderness BLADDER/KIDNEY EXAM: Yes no CVA tenderness Back/Pelvis: COMMON NORMALS: no CVA tenderness Extremity: COMMON NORMALS: normal to inspection Neuro: COMMON NORMALS: patient oriented x3 SENSORIUM/ORIENTATION: Yes alert GAIT: Yes Normal gait present Skin: GENERAL SKIN EXAM: dry skin Course Vital Signs: Vital signs: Vital Signs Temperature 96.8 F L 03/17/21 10:05 Pulse Rate 82 03/17/21 13:59 Respiratory Rate 18 03/17/21 13:59 Blood Pressure 150/94 03/17/21 13:59 Pulse Oximetry 94 03/17/21 13:59 MDM - Abdominal Pain MDM Narrative: Medical decision making narrative: Patient is a 40-year-old male who comes to the ED with left upper quadrant abdominal pain. Patient was seen here for same complaint back on March 09 and he was diagnosed with constipation. Patient says his symptoms have not improved after taking MiraLAX. Still denies any fever, chills, nausea, vomiting, bladder or bowel symptoms. Vitals stable and all labs were unremarkable. Chest x-ray showed no acute findings and CT of abdomen showed some mild small bowel enteritis. Patient diagnosed with abdominal pain left upper quadrant told to follow-up with PCP in 7 to 10 days for reevaluation. Return to ED precautions given. Told patient to take [id number]-[id number] MiraLAX as needed for constipation. Told him he could take ztoy-mtc-bcnelle antidiarrheal meds as needed if he starts developing diarrhea. Make sure you are drinking plenty of water to stay hydrated. Patient understood and agreed with plan. Lab Data: Attestation: I reviewed the patient's lab results. Labs: Lab Results 03/17/21 03/17/21 03/17/21 Range/Units 11:22 11:22 13:24 WBC 6.1 (4.0-10.0) 10^3/ uL RBC 5.35 H (4.1-5.3) 10^6/u L Hgb 15.7 (11.7-16.6) g/dL Hct 47.2 (42.0-52.0) % MCV 88.2 (80-94) fL MCH 29.3 (28.0-34.0) pg MCHC 33.3 (30.0-36.0) g/dL RDW 12.5 (12.1-15.1) % Plt Count 272 (130-400) 10^3/c mm MPV 9.1 (7.4-10.4) fL Neut % (Auto) 50.4 % Lymph % (Auto) 31.8 % Roberts % (Auto) 10.1 % Eos % (Auto) 6.7 % Baso % (Auto) 0.7 % Neut # (Auto) 3.10 (1.8-7.7) 10^3/u L Lymph # (Auto) 2.0 (0.8-4.8) 10^3/u L Roberts # (Auto) 0.6 (0.2-0.9) 10^3/u L Eos # (Auto) 0.4 (0.0-0.8) 10^3/u L Baso # (Auto) 0.0 (0.0-0.1) 10^3/u L Nucleated RBC % (a uto) 0 % Nucleated RBCs # 0.0 /100WBC Sodium 137 (136-145) mmol/L Potassium 3.9 (3.5-5.1) mmol/L Chloride 100 (98-107) mmol/L Carbon Dioxide 30 H (22-29) mmol/L Anion Gap 10.9 (5-19) BUN 11 (6-20) mg/dL Creatinine 0.8 (0.7-1.2) mg/dL GFR Calculation 106.5 (90-130) mL/min Glucose 71 (65-115) mg/dL Calculated Osmolal ity 282 L (285-295) mOsm/k g Calcium 9.4 (8.5-10.5) mg/dL Total Bilirubin 0.2 (0.15-1.2) mg/dL AST 19 (0-40) U/L ALT 24 (0-41) U/L Alkaline Phosphata se 81 (40-130) IU/L Total Protein 7.0 (6.6-8.7) g/dL Albumin 4.4 (3.5-5.2) g/dL Globulin 2.6 (1.3-4.6) g/dL Lipase 46 (13-60) U/L Urine Color Yellow (Yellow) Urine Appearance Clear (CLEAR) Urine pH 6 (5-7) Ur Specific Gravit y 1.015 (1.005-1.030) Urine Protein Neg (Negative) Urine Glucose (UA) Norm (Normal) Urine Ketones Negative (Negative) Urine Blood Neg (Negative) Urine Nitrate Negative (Negative) Urine Bilirubin Neg (Negative) Urine Urobilinogen Norm (Negative) mg/dL Ur Leukocyte Emma ase Negative (Negative) Urine RBC None (0-2) /hpf Urine WBC None (0-5) /hpf Ur Squamous Epith Cells None (0-5) /hpf Amorphous Sediment Not Reportable Urine Bacteria Trace (NONE) /hpf Imaging Data ^: CXR: Attestation: I personally reviewed and interpreted this imaging study as follows: Radiologist's impression: [address] [address] XRay Report Signed Patient: Bre Valentin JR Unit #: [id number] : 1980 Age/Sex: 40 / M ADM Date: 03/17/21 Loc: ER Room/Bed: Attending Dr: Ordering Provider/Ordering MD: Miguelangel Paez Date of Service: 03/17/21 Procedure(s): XR chest 1V portable [id number] Accession Number(s): [id number] Report Number: [id number] PROCEDURE INFORMATION: Exam: XR Chest Exam date and time: 03/17/2021 11:29 AM Age: 40 years old Clinical indication: Left-sided chest pain; Additional info: Left lower rib pain and light crackling heard on exam TECHNIQUE: Imaging protocol: XR of the chest. Views: 1 view. COMPARISON: CR XR ribs LT mn 3V w CXR1V [id number] 03/09/2021 8:37 PM FINDINGS: Lungs: Unremarkable. No consolidation. Pleural spaces: Unremarkable. No pleural effusion. No pneumothorax. Heart/Mediastinum: Unremarkable. No cardiomegaly. Bones/joints: Unremarkable. XR/XR chest 1V portable [id number] IMPRESSION: No significant abnormality. Dictated By: Jeramy Villalobos Signed By: Jeramy Villalobos Signed Date/Time: 03/17/21 1210 DD/ 1209 CT Abd/Pel: Attestation: I personally reviewed and interpreted this imaging study as follows: Radiologist's impression: [address] [address] [address] Scan Report Signed Patient: Bre Valentin JR Unit #: [id number] : 1980 Age/Sex: 40 / M ADM Date: 03/17/21 Loc: ER Room/Bed: Attending Dr: Ordering Provider/Ordering MD: Miguelangel Paez Date of Service: 03/17/21 Procedure(s): CT abdomen pelvis w con* [id number] Accession Number(s): [id number] Report Number: [id number] WS: [id number] CT ABDOMEN PELVIS TECHNIQUE: Contrast-enhanced CT of the abdomen and pelvis with coronal and sagittal reformatted images. CLINICAL INFORMATION: LUQ abdom pain and tenderness COMPARISON: None. DLP: 973.[address] scans at [facility] use at least one of these dose optimization techniques: automated exposure control; mA and/or kV adjustment per patient size (includes targeted exams where dose is matched to clinical indication); or iterative reconstruction. FINDINGS: Mild diffuse fatty infiltration of the liver. Normal portal vein and splenic vein. Gallbladder is contracted. Lung bases are well aerated. Normal spleen. Normal GE junction. Adrenal glands are normal. Normal renal parenchymal enhancement. No hydronephrosis. Normal caliber abdominal aorta. Urine distended bladder. A few sigmoid diverticuli. No evidence of acute diverticulitis. No evidence of high-grade small or large bowel obstruction. Prominent fluid-filled small bowel loops in the midabdomen can be seen with small bowel enteritis. No abdominal or pelvic lymphadenopathy. Normal spleen. CT/CT abdomen pelvis w con* [id number] IMPRESSION: 1. Prominent enhancing fluid-filled small bowel loops in the midabdomen can be seen with small bowel enteritis. No evidence of small or large bowel obstruction. 2. Urine distended bladder. 3. A few sigmoid diverticuli. No evidence of acute diverticulitis. 4. Mild diffuse fatty infiltration of the liver. 5. No other significant findings. Dictated By: Juan Driscoll MD Signed By: Juan Driscoll MD Signed Date/Time: 03/17/21 1246 DD/ 1238 Discharge Plan Discharge Patient Disposition: Home Clinical Impression: Abdominal pain Qualifiers: Abdominal location: left upper quadrant Qualified Code(s): R10.12 - Left upper quadrant pain Condition: Stable Prescriptions: No Action Kris Back and Body 500-32.5 mg Tablet 2 tab PO DAILY PRN (Reason: Pain) RF: 0 polyethylene glycol 3350 [Miralax] 17 gram/dose powder 17 g PO DAILY PRN (Reason: constipation) Qty: 119 RF: 0 naproxen [Naprosyn] 500 mg tablet 500 mg PO BID PRN (Reason: pain) Qty: 20 RF: 0 Robaxin-750 750 mg tablet 750 mg PO Q8H PRN (Reason: Pain) RF: 0 Discharge Orders: Discharge ED (Routine); Ordered 03/17/21 Ordered By: Miguelangel Paez Referrals: Maeve Garcia FNP [Primary Care Provider] - Discharge Diet: Regular Discharge Activity: Resume usual activity Patient Instructions: Abdominal Pain (ED) Activity Restrictions/Additional Instructions: Follow-up with medical provider as directed in 7 to 10 days for reevaluation. Take ooku-jlb-yochfxn Tylenol or ibuprofen for any pain. Return to the ER or your medical provider if condition worsens. Please read and understand discharge instructions. If any questions, please ask. Coding Level of Care Code ED Deck Mate for Que Fwkvng Exam Comprehensive
--- NOTE | 2021-03-17 11:25 | XRR_ITS ---
PROCEDURE INFORMATION: Exam: XR Chest Exam date and time: 03/17/2021 11:29 AM Age: 40 years old Clinical indication: Left-sided chest pain; Additional info: Left lower rib pain and light crackling heard on exam TECHNIQUE: Imaging protocol: XR of the chest. Views: 1 view. COMPARISON: CR XR ribs LT mn 3V w CXR1V [id number] 03/09/2021 8:37 PM FINDINGS: Lungs: Unremarkable. No consolidation. Pleural spaces: Unremarkable. No pleural effusion. No pneumothorax. Heart/Mediastinum: Unremarkable. No cardiomegaly. Bones/joints: Unremarkable. XR/XR chest 1V portable [id number] IMPRESSION: No significant abnormality.
--- NOTE | 2021-03-17 11:25 | CT_ITS ---
WS: [id number] CT ABDOMEN PELVIS TECHNIQUE: Contrast-enhanced CT of the abdomen and pelvis with coronal and sagittal reformatted image s. CLINICAL INFORMATION: LUQ abdom pain and tenderness COMPARISON: None. DLP: 973.[address] scans at [facility] use at least one of these dose optimization techniques: automat ed exposure control; mA and/or kV adjustment per patient size (includes targeted exams where dose is matched to clinical indication); or iterative reconstruction. FINDINGS: Mild diffuse fatty infiltration of the liver. Normal portal vein and splenic vein. Gallbladder is con tracted. Lung bases are well aerated. Normal spleen. Normal GE junction. Adrenal glands are normal. N ormal renal parenchymal enhancement. No hydronephrosis. Normal caliber abdominal aorta. Urine distend ed bladder. A few sigmoid diverticuli. No evidence of acute diverticulitis. No evidence of high-grade small or large bowel obstruction. Prominent fluid-filled small bowel loops in the midabdomen can be seen with small bowel enteritis. No abdominal or pelvic lymphadenopathy. No rmal spleen. CT/CT abdomen pelvis w con* [id number] IMPRESSION: 1. Prominent enhancing fluid-filled small bowel loops in the midabdomen can be seen with small bowel enteritis. No evidence of small or large bowel obstructi on. 2. Urine distended bladder. 3. A few sigmoid diverticuli. No evidence of acute diverticulitis. 4. Mild diffuse fatty infiltration of the liver. 5. No other significant findings.
[2021-03-17 11:30] LABS: Basophils % 0.7 %; Eosinophils # 0.4 10^3/uL (0.0-0.8); Eosinophils % 6.7 %; Hematocrit 47.2 % (42.0-52.0); Hemoglobin 15.7 g/dL (11.7-16.6); Lymphocytes % 31.8 %; Mean Corpuscular HGB Conc 33.3 g/dL (30.0-36.0); Mean Corpuscular Hemoglobin 29.3 pg (28.0-34.0); Mean Corpuscular Volume 88.2 fL (80-94); Mean Platelet Volume 9.1 fL (7.4-10.4); Monocytes # 0.6 10^3/uL (0.2-0.9); Monocytes % 10.1 %; Neutrophils % 50.4 %; Nucleated Red Blood Cells % 0 %; Platelet Count 272 10^3/cmm (130-400); Red Blood Count 5.35 10^6/uL (4.1-5.3); Red Cell Distribution Width 12.5 % (12.1-15.1); White Blood Count 6.1 10^3/uL (4.0-10.0)
[2021-03-17] MEDS: sodium chloride 0.9% 500 ML 999 ML IV (11:36)
[2021-03-17 11:54] LABS: Alanine Aminotransferase 24 U/L (0-41); Albumin Level 4.4 g/dL (3.5-5.2); Alkaline Phosphatase 81 IU/L (40-130); Anion Gap 10.9 (5-19); Aspartate Amino Transferase 19 U/L (0-40); Blood Urea Nitrogen 11 mg/dL (6-20); Calcium 9.4 mg/dL (8.5-10.5); Carbon Dioxide 30 mmol/L (22-29); Chloride 100 mmol/L (98-107); Globulin 2.6 g/dL (1.3-4.6); Glomerular Filtration Rate 106.5 mL/min (90-130); Glucose 71 mg/dL (65-115); Lipase 46 U/L (13-60); Osmolality Calculated 282 mOsm/kg (285-295); Potassium 3.9 mmol/L (3.5-5.1); Sodium 137 mmol/L (136-145); Total Bilirubin 0.2 mg/dL (0.15-1.2)
[2021-03-17] MEDS: iohexol 300 mg/mL 100 mL Btl IV (12:15)
[2021-03-17 13:43] LABS: Add Urine Culture? No; Bacteria Urine TRACE /hpf; Bilirubin Urine Neg (Negative); Blood Urine Neg (Negative); Glucose Urine UA Norm (Normal); Ketones Urine Negative (Negative); Leukocyte Esterase Urine Negative (Negative); Nitrate Urine Negative (Negative); Protein Urine Neg (Negative); Specific Gravity, Urine 1.015 (1.005-1.030); Urine Appearance Clear (CLEAR); Urine Color Yellow (Yellow); Urobilinogen Urine Norm (Negative); pH Urine 6 (5-7)
[2021-03-17 13:59] VITALS: BP 150/94; PULSE 82; RESP 18; O2SAT 94
== END 2021-03-17 13:59 | disposition home or self-care (01) ==
PROVIDERS: Emergency Provider Physician Assistant; PCP Nurse Practitioner
DX: R10.12 Left upper quadrant pain (principal)
CPT/HCPCS: 71045; 74177; 80053; 81001; 83690; 85025; 99283; J7040; Q9967

== ENCOUNTER 2021-11-29 21:10 | Inpatient (IN) | payer SELFPAY ==
[2021-11-29] VITALS (7 sets, daily range): BP systolic 122–136; BP diastolic 82–96; PULSE 81–84; RESP 12–24; O2SAT 97–99
--- NOTE | 2021-11-29 21:16 | XRR_ITS ---
PROCEDURE INFORMATION: Exam: XR Chest Exam date and time: 11/29/2021 9:16 PM Age: 40 years old Clinical indication: Patient HX: Drug overdose; PT unresponsive-no history; Additional info: Od TECHNIQUE: Imaging protocol: XR of the chest. Views: 1 view. COMPARISON: CR XR chest 1V portable [id number] 03/17/2021 11:28 AM FINDINGS: Lungs: Unremarkable. No consolidation. Pleural spaces: Unremarkable. No pleural effusion. No pneumothorax. Heart/Mediastinum: Unremarkable. No cardiomegaly. Bones/joints: Unremarkable. XR/XR chest 1V portable [id number] IMPRESSION: No acute findings.
--- NOTE | 2021-11-29 21:16 | ECG_ITS ---
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 Measurements Intervals [place] Rate: 83 P: 66 OR: 164 QRS: 63 QRSD: 91 T: 57 QT: 380 QTc: 447 Interpretive Statements SINUS RHYTHM No previous ECG available for comparison Electronically Signed On 11-30-2021 20:47:30 CASEWORKER by Jovan Mccray M.D. [id number]
[2021-11-29] MEDS: sodium chloride 0.9% 1,000 ML 999 ML IV (21:20)
--- NOTE | 2021-11-29 21:23 | W.ED.OVERDOS ---
HPI - Overdose General: Chief Complaint: Overdose Stated Complaint: Overdose Time Seen by Provider: 11/29/21 21:11 Source: patient Mode of arrival: ambulatory Limitations: no limitations History of Present Illness: HPI Narrative: 40-year-old male who presents here after an overdose attempt he states that his girlfriend broke up with him today he is having severe depression took 25 0.4 mg nitro tablets roughly at 2030. Patient here is awake and alert is no complaints does have some slight lethargy no dyspnea no vomiting no diarrhea. Review of Systems Const: Denies: fever(s), chills, body aches or change in appetite Eyes: Denies: blurry vision or eye discomfort ENMT: Denies: throat pain or dental pain Card: Denies: chest pain Resp: Denies: dyspnea GI: Denies: abdominal pain, nausea, vomiting or diarrhea : Denies: dysuria Musc: Denies: neck pain or back pain Skin/Breast: Denies: rash Neuro: Denies: headache(s) Psych: Reports: depression and suicidal ideation Mikal/Lymph: Denies: easy bruising All/Imm: Denies: urticaria PFSH ED PFSH: Social History Smoking and tobacco status: never smoked Physical Exam Const: COMMON NORMALS: no acute distress, patient oriented x3 and healthy appearing HENMT: COMMON NORMALS: normocephalic and atraumatic HEAD & SCALP: normocephalic and atraumatic Eye: COMMON NORMALS: Equal, round and reactive pupils present and EOMs intact bilaterally PUPIL: Yes Equal, round and reactive pupils present Neck/C-Spine: COMMON NORMALS: full ROM and supple Chest: COMMONS NORMALS: normal inspection of the chest and normal palpation of entire chest wall Resp: COMMON NORMALS: normal respiratory effort, No retractions, No use of accessory muscles and clear to auscultation bilaterally AUSCULTATION: clear to auscultation bilaterally Cardio: COMMON NORMALS: regular rate, regular rhythm and No murmurs present (Cardio) RATE: regular rate RHYTHM: regular rhythm GI: COMMON NORMALS: Normal to inspection, nondistended, normoactive bowel sounds present, Soft to palpation, non-tender and no masses PALPATION: Yes Soft to palpation Extremity: COMMON NORMALS: normal to inspection and full ROM Neuro: COMMON NORMALS: patient oriented x3, moves all extremities and no focal motor deficits Psych: COMMON NORMALS: mental status grossly normal, Normal thought process present and cooperative THOUGHT PROCESS: Normal thought process present Skin: COMMON NORMALS: no rashes or lesions noted and no wounds GENERAL SKIN EXAM: no rashes or lesions noted Course Vital Signs: Vital signs: Vital Signs Pulse Rate 83 11/29/21 21:35 Respiratory Rate 24 H 11/29/21 21:35 Blood Pressure 125/84 11/29/21 21:35 Pulse Oximetry 98 11/29/21 21:35 MDM - Overdose MDM Narrative: Medical decision making narrative: Patient presents here with overdose did speak to poison control and the half-life of nitro is very short roughly 5 minutes patient is medically cleared will admit to psychiatric unit. Lab Data: Labs: Lab Results 11/29/21 11/29/21 21:15 21:15 WBC 7.8 10^3/uL 10^3/ uL (4.0-10.0) RBC 4.40 10^6/uL 10^6 /uL (4.1-5.3) Hgb 13.2 g/dL g/dL (11.7-16.6) Hct 38.5 % L % (42.0-52.0) MCV 87.5 fl fl (80-94) MCH 30.0 pg pg (28.0-34.0) MCHC 34.3 g/dL g/dL (30.0-36.0) RDW 12.3 % % (12.1-15.1) Plt Count 306 10^3/cmm 10^3 /cmm (130-400) MPV 9.1 fL fL (7.4-10.4) Neut % (Auto) 61.6 % % Lymph % (Auto) 28.6 % % [place] % (Auto) 7.9 % % Eos % (Auto) 1.3 % % Baso % (Auto) 0.3 % % Neut # (Auto) 4.83 10^3/uL 10^3 /uL (1.8-7.7) Lymph # (Auto) 2.2 10^3/uL 10^3/ uL (0.8-4.8) [place] # (Auto) 0.6 10^3/uL 10^3/ uL (0.2-0.9) Eos # (Auto) 0.1 10^3/uL 10^3/ uL (0.0-0.8) Baso # (Auto) 0.0 10^3/uL 10^3/ uL (0.0-0.1) Nucleated RBC % (a uto) 0 % % Nucleated RBCs # 0.0 /100WBC /100W BC Sodium 141 mmol/L mmol/L (136-145) Potassium 3.8 mmol/L mmol/L (3.5-5.1) Chloride 103 mmol/L mmol/L (98-107) Carbon Dioxide 23 mmol/L mmol/L (22-29) Anion Gap 18.8 (5-19) BUN 9 mg/dL mg/dL (6-20) Creatinine 1.1 mg/dL mg/dL (0.7-1.2) GFR Calculation 73.8 mL/min L mL/ min (90-130) Glucose 104 mg/dL mg/dL (65-115) Calculated Osmolal ity 291 mOsm/kg mOsm/ kg (285-295) Calcium 8.6 mg/dL mg/dL (8.5-10.5) Total Bilirubin 0.3 mg/dL mg/dL (0.15-1.2) AST 16 U/L U/L (0-40) ALT 13 U/L U/L (0-41) Alkaline Phosphata se 69 IU/L IU/L (40-130) Total Protein 6.8 g/dL g/dL (6.6-8.7) Albumin 4.4 g/dL g/dL (3.5-5.2) Globulin 2.4 g/dL g/dL (1.3-4.6) Salicylates < 0.3 mg/dL L mg/ dL (3-10) Acetaminophen < 5.0 ug/mL L ug/ mL (10-30) Ethyl Alcohol 41 mg/dL H mg/dL (0-10) Imaging Data^: CXR: Attestation: I personally reviewed and interpreted this imaging study as follows: My impression: no acute abnormality EKG Data^: EKG 1: Attestation: I personally reviewed and interpreted this EKG as follows: EKG interpretation date: 11/29/21 EKG interpretation time: 21:22 Interpretation: nsr hr [address] or t wave abnormalities qrs 91 qtc 419 Discharge Plan Discharge Patient Disposition: Admitted As Inpatient Clinical Impression: Suicide attempt by drug overdose Condition: Stable Coding Level of Care Code ED Certified Registered Dental Assistant for [place] Fwd Exam Comprehensive
[2021-11-29 21:30] LABS: Basophils % 0.3 %; Eosinophils # 0.1 10^3/uL (0.0-0.8); Eosinophils % 1.3 %; Hematocrit 38.5 % (42.0-52.0); Hemoglobin 13.2 g/dL (11.7-16.6); Lymphocytes # 2.2 10^3/uL (0.8-4.8); Lymphocytes % 28.6 %; Mean Corpuscular HGB Conc 34.3 g/dL (30.0-36.0); Mean Corpuscular Volume 87.5 fl (80-94); Mean Platelet Volume 9.1 fL (7.4-10.4); Monocytes # 0.6 10^3/uL (0.2-0.9); Monocytes % 7.9 %; Neutrophils # 4.83 10^3/uL (1.8-7.7); Neutrophils % 61.6 %; Nucleated Red Blood Cells % 0 %; Platelet Count 306 10^3/cmm (130-400); Red Cell Distribution Width 12.3 % (12.1-15.1); White Blood Count 7.8 10^3/uL (4.0-10.0)
[2021-11-29 21:50] LABS: Alanine Aminotransferase 13 U/L (0-41); Albumin Level 4.4 g/dL (3.5-5.2); Alcohol Level 41 mg/dL (0-10); Alkaline Phosphatase 69 IU/L (40-130); Anion Gap 18.8 (5-19); Aspartate Amino Transferase 16 U/L (0-40); Blood Urea Nitrogen 9 mg/dL (6-20); Calcium 8.6 mg/dL (8.5-10.5); Carbon Dioxide 23 mmol/L (22-29); Chloride 103 mmol/L (98-107); Globulin 2.4 g/dL (1.3-4.6); Glomerular Filtration Rate 73.8 mL/min (90-130); Glucose 104 mg/dL (65-115); Osmolality Calculated 291 mOsm/kg (285-295); Potassium 3.8 mmol/L (3.5-5.1); Sodium 141 mmol/L (136-145); Total Bilirubin 0.3 mg/dL (0.15-1.2); Total Protein 6.8 g/dL (6.6-8.7)
[2021-11-29 21:57] LABS: Acetaminophen < 5.0 ug/mL (10-30); Salicylate < 0.3 mg/dL (3-10)
[2021-11-30 06:00] VITALS: BP 117/75; PULSE 88; RESP 17; TEMP 36.8; O2SAT 97
--- NOTE | 2021-11-30 11:54 | P.NPUHP_ITS ---
Providers/Chief Complaint Admitting Physician: Raoul Roberts MD Chief Complaint: Overdose HPI NPU History of Present Illness Bre Valentin JR is a 40 year old male who presented to the emergency department with the following report: Chief Complaint: Overdose Stated Complaint: Overdose Time Seen by Provider: 11/29/21 21:11 Source: patient Mode of arrival: ambulatory Limitations: no limitations History of Present Illness: HPI Narrative: 40-year-old male who presents here after an overdose attempt he states that his girlfriend broke up with him today he is having severe depression took 25 0.4 mg nitro tablets roughly at 2030. Patient here is awake and alert is no complaints does have some slight lethargy no dyspnea no vomiting no diarrhea. He was admitted to the neuropsychiatric unit for definitive treatment of those issues. He presented today denying any inpatient psychiatric services, denied any outpatient services, and denies ever being on ant psychiatric medication. He reports he does not smoke cigarettes, does not drink alcohol, but did drink prior to this behavior, denies marijuana, or any other illicit drug use. He reports he did go to rehab years ago when he was having difficulty with marijuana and methamphetamine but denies that being a difficulty recently. He reports that he has never realty had significant issues with mental health, depression, anxiety, or otherwise. He reports however that his significant other split up with him and left him saying she could not do it anymore, and he reports that he is not sure why he behaved the way he did, but that he did take the overdose of pills described above. He reports that he has a daughter that stays with him usually, and also a son that was with his girlfriend at the time, and he reports that he is writing a letter to apologize to him, that he is ashamed, that he has never responded that way, that they depend on him, and he has to accept that if she is ready to go, that there is nothing he can do about it. He says he did the behavior for attention, and he is just ashamed and embarrassed by that choice. He does report about a year ago or so, his mother on the surgical table in [place] during a bowel surgery, and his brother six months from that from leukemia but denies any current issues that have led to this behavior other than this impulsive move while intoxicated. He denies any history of suicide attempts or self-injurious behavior. PSYCHIATRIC HISTORY: As above. SUBSTANCE ABUSE HISTORY: As above. FAMILY HISTORY: There are no mental health or addiction issues on either side of the family, and no suicide attempts or completions in the family. DEVELOPMENTAL HISTORY: He denies any issues with his mother?s or delivery of him. He met all developmental milestones on time. He denies any speech therapy, learning support, emotional support, or special education classes. PSYCHOSOCIAL HISTORY: He reports that his parents were together when he was born, and he has one younger brother that is the product of that union. He reports that his parents did separate, and his mother had two more boys that are his half-siblings, but he denies his dad had any other kids. He reports his childhood was good and he denies any emotional, physical, or sexual abuse. He denies any other traumatic events in his life. He reports that he went to the 10th grade in high school but dropped out. He reports he did go to [employer] to get his GED. He endorses being heterosexual with his longest relationship being eight years. He has been one time and once. He has five children 22-year-old boy, 21-year-old girl, 19-year-old boy, 16- year-old boy that is with his mom, and an 8-year-old girl, and 6-year-old boy that live with him regularly, he denies ever being in the or any lutheran belief system. He reports his longest employment was ten years in the [employer], but he currently works for [employer], and he has been there for about three years. He currently lives in a trailer and with the exit of his girlfriend, he and his daughter and son, the youngest two, live in that trailer. LEGAL HISTORY: He has [facility] times, the longest time for about six months. MEDICAL HISTORY: He denies any significant issues other than the suicide attempt. Meds NPU Home Medications Medication Instructions Recorded Confirmed Last Taken Type No Known Home Medications 11/29/21 11/29/21 Unknown History Allergies Allergy/AdvReac Type Severity Reaction Status Date / Time No Known Allergies Allergy Verified 03/17/21 10:09 [facility] NPU PFS: Social History Smoking and tobacco status: never smoked Mental Status Exam MSE Comments: This is a well-nourished, well-developed, white male, in hospital scrubs, with some tattooing on his exposed skin, with adequate grooming, and eye contact. No abnormal movements except for mild psychomotor retardation. Cooperative with exam in mild distress. Speech was decreased rate and volume. Mood described as good; affect slightly subdued. Thought process, organized. Thought content: patient denied any suicidal or homicidal ideation, there were no delusions reported or noted, patient denied any auditory or visual hallucinations. Attention, concentration, and memory appear intact but were not formally tested. He is alert and oriented times three. Insight and judgment appear fair, and impulse control is limited to impaired. Vitals/I&O/Wt Last Vital Signs Temp 98.3 F 11/30/21 06:00 Pulse 88 11/30/21 06:00 Resp 17 11/30/21 06:00 BP 117/75 11/30/21 06:00 Pulse Ox 97 11/30/21 06:00 11/29/21 11/30/21 11/30/21 22:59 06:59 14:59 Intake Total 1000 / 1000 Balance 1000 / 1000 Weight last 48 hrs Weight 68.039 kg Data NPU : 11/29/21 21:15 11/29/21 21:15 A&P Assessment and plan (1) Suicide attempt by drug overdose: Status: Acute (2) Alcohol abuse: Status: Acute (3) Partner relational problem: Status: Acute (4) Adjustment disorder with mixed disturbance of emotions and conduct: Status: Acute Additional A&P Information This is a 40, almost 41-year-old, white male, with history of addiction, in remission, according to his report, except for some current alcohol use that he reports is sporadic at worse with recent family losses, and recent impulsive behavior at the breakup with his girlfriend, who presents reporting that he is not in need of treatment, but he made a bad decision, but he understands the error of his ways and plans to do better. RECOMMENDATION AND PLAN: 1. Continue current medication. Will explore whether an anti-anxiety agent would be appropriate, but at this point he is not interested in any medication trials. 2. Encourage individual, group, and milieu therapy. 3. Continue q-15 minute checks for safety. 4. Encourage sober living treatment after discharge, at the highest level of care, to which he is willing to commit. Involuntary Hold Information 96 Hour Hold: 96 Hour Involuntary Admission: Yes 96 Hour Hold Ending Date: 12/04/21 96 Hour Hold Ending Time: 00:01 Attestations NPU Medical Necessity Statement*: Inpatient hospitalization is medically necessary and the clinically appropriate intervention, at this time. We will monitor medications and make changes as indicated. Patient will be in the hospital for over two midnights. Likely length of stay is two to four days. Coding Level of Care Code Acute Recreation Clerk for Que Fwd Diagnoses Suicide attempt by drug overdose T50.902A Alcohol abuse F10.10 Partner relational problem Z63.0 Adjustment disorder with mixed disturbance of emotions and conduct F43.25
[2021-11-30 14:00] VITALS: BP 119/75; PULSE 81; RESP 16; TEMP 36.7; O2SAT 100
[2021-11-30 17:02] LABS: Amphetamines Screen Urine Positive (Negative); Barbiturates Screen Urine Negative (Negative); Benzodiazepines Screen Urine Negative (Negative); Cocaine Screen Urine Negative (Negative); Opiate Screen Urine Negative (Negative); PCP Screen Urine Negative (Negative); THC Screen Urine Negative (Negative)
[2021-11-30 19:28] VITALS: BP 111/62; PULSE 88; RESP 16; TEMP 36.6; O2SAT 99
[2021-12-01 06:00] VITALS: BP 128/82; PULSE 69; RESP 15; TEMP 36.7; O2SAT 99
--- NOTE | 2021-12-01 13:48 | P.NPUDS_ITS ---
Diagnoses at Discharge Discharge Diagnosis (1) Suicide attempt by drug overdose: Status: Acute (2) Alcohol abuse: Status: Acute (3) Partner relational problem: Status: Acute (4) Adjustment disorder with mixed disturbance of emotions and conduct: Status: Acute Reason for Visit Reason for Visit: Overdose Brief History: History of Present Illness Bre Valentin JR is a 40 year old male who presented to the emergency department with the following report: Chief Complaint: Overdose Stated Complaint: Overdose Time Seen by Provider: 11/29/21 21:11 Source: patient Mode of arrival: ambulatory Limitations: no limitations History of Present Illness: HPI Narrative: 40-year-old male who presents here after an overdose attempt he states that his girlfriend broke up with him today he is having severe depression took 25 0.4 mg nitro tablets roughly at 2030. Patient here is awake and alert is no complaints does have some slight lethargy no dyspnea no vomiting no diarrhea. He was admitted to the neuropsychiatric unit for definitive treatment of those issues. He presented today denying any inpatient psychiatric services, denied any outpatient services, and denies ever being on ant psychiatric medication. He reports he does not smoke cigarettes, does not drink alcohol, but did drink prior to this behavior, denies marijuana, or any other illicit drug use. He reports he did go to rehab years ago when he was having difficulty with marijuana and methamphetamine but denies that being a difficulty recently. He reports that he has never realty had significant issues with mental health, depression, anxiety, or otherwise. He reports however that his significant other split up with him and left him saying she could not do it anymore, and he reports that he is not sure why he behaved the way he did, but that he did take the overdose of pills described above. He reports that he has a daughter that stays with him usually, and also a son that was with his girlfriend at the time, and he reports that he is writing a letter to apologize to him, that he is roxanne risa, that he has never responded that way, that they depend on him, and he has to accept that if she is ready to go, that there is nothing he can do about it. He says he did the behavior for attention, and he is just ashamed and embarrassed by that choice. He does report about a year ago or so, his mother on the surgical table in [place] during a bowel surgery, and his brother six months from that from leukemia but denies any current issues that have led to this behavior other than this impulsive move while intoxicated. He denies any history of suicide attempts or self-injurious behavior. PSYCHIATRIC HISTORY: As above. SUBSTANCE ABUSE HISTORY: As above. FAMILY HISTORY: There are no mental health or addiction issues on either side of the family, and no suicide attempts or completions in the family. DEVELOPMENTAL HISTORY: He denies any issues with his mother?s or delivery of him. He met all developmental milestones on time. He denies any speech therapy, learning support, emotional support, or special education classes. PSYCHOSOCIAL HISTORY: He reports that his parents were together when he was born, and he has one younger brother that is the product of that union. He reports that his parents did separate, and his mother had two more boys that are his half-siblings, but he denies his dad had any other kids. He reports his childhood was good and he denies any emotional, physical, or sexual abuse. He denies any other traumatic events in his life. He reports that he went to the 10th grade in high school but dropped out. He reports he did go to [employer] to get his GED. He endorses being heterosexual with his longest relationship being eight years. He has been one time and once. He has five children 22-year-old boy, 21-year-old girl, 19-year-old boy, 16- year-old boy that is with his mom, and an 8-year-old girl, and 6-year-old boy that live with him regularly, he denies ever being in the or any druze belief system. He reports his longest employment was ten years in the [employer], but he currently works for [employer], and he has been there for about three years. He currently [facility] and with the exit of his girlfriend, he and his daughter and son, the youngest two, live in that trailer. LEGAL HISTORY: He has been in detention four or five times, the longest time for about six months. MEDICAL HISTORY: He denies any significant issues other than the suicide attempt. Hospital Course Hospital Course He quickly acclimated to the individual, group and milieu therapies provided. He was able to have a conscientious conversation about his addictive behavior as well as his choice for how to deal with the recent stressors in his life. He was not interested in initiating medication and was observed for signs of credible lethality. He had marked improvement during his stay and he worked with the treatment team to consider resources for after discharge. He was able to contract for safety outside of the hospital prior to discharge. During the hospitalization, patient had routine laboratory studies which were within normal limits except for few outliers. Additionally there was a general medical evaluation which was also within normal limits and revealed no new acute processes. Discharge Summary: At the time of discharge, he denied psychosis or lethality. Mood and anxiety were well managed. Patient endorsed a plan to avoid all drugs of abuse and follow-up with the aftercare recommendations of the treatment team. Patient was evaluated and deemed to be absent credible lethality, and had achieved the maximum benefit from an inpatient hospitalization, so was discharged. Involuntary Hold Information 96 Hour Hold: 96 Hour Involuntary Admission: Yes 96 Hour Hold Ending Date: 12/04/21 96 Hour Hold Ending Time: 00:01 Mental Status Exam MSE Comments: This is a well-nourished, well-developed, white male, in hospital scrubs, with some tattooing on his exposed skin, with adequate grooming, and eye contact. No abnormal movements except for mild psychomotor retardation. Cooperative with exam in mild distress. Speech was decreased rate and volume. Mood described as good; affect slightly subdued. Thought process, organized. Thought content: patient denied any suicidal or homicidal ideation, there were no delusions reported or noted, patient denied any auditory or visual hallucinations. Attention, concentration, and memory appear intact but were not formally tested. He is alert and oriented times three. Insight and judgment appear fair, and impulse control is limited to impaired. Discharge Data Data Completed and Pending: Completed Studies During Hospitalization Category Date Time Status XR chest 1V denisha ble [id number] Urgent Exams 11/29/21 21:16 Completed Labs from last 24 hours 11/29/21 Unknown Urine Opiates Scre en Negative Ur Barbiturates Sc reen Negative Ur Phencyclidine S crn Negative Ur Amphetamines Sc reen Positive H U Benzodiazepines Scrn Negative Urine Cocaine Scre en Negative U Marijuana (THC) Screen Negative Vitals: Last Vital Signs Temp 98.0 F 12/01/21 06:00 Pulse 69 12/01/21 06:00 Resp 15 12/01/21 06:00 BP 128/82 01/04/22 06:00 Pulse Ox 99 12/01/21 06:00 Discharge Plan Discharge Patient Disposition: Home Condition: Stable Prescriptions: Continued No Known Home Medications RF: 0 Discharge Orders: Discharge Order (Routine); Ordered 12/01/21 Ordered By: Raoul Roberts Referrals: [facility] [Outside] - 7-10 days (Walk-in Tuesdays or 7:30am to 3pm. The earlier in the day the better.) Discharge Diet: Regular Discharge Activity: Resume usual activity Patient Instructions: Opioid Safety Discharge Attestations NPU Time Spent in Discharge Care*: greater than 30 min Specific Discharge Activities: Specific discharge activities: educating patient, educating and/or supporting family/caregiver, discussing with field nurse case manager/social workers/dc planners, documenting/other paperwork and evaluating patient/reviewing data Coding Level of Care Code Acute Chg FW DC note Diagnoses Suicide attempt by drug overdose T50.902A Alcohol abuse F10.10 Partner relational problem Z63.0 Adjustment disorder with mixed disturbance of emotions and conduct F43.25
[2021-12-01 14:07] VITALS: BP 128/82; PULSE 69; RESP 15; TEMP 36.7; O2SAT 99
== END 2021-12-01 14:22 | disposition home or self-care (01) | DRG 918 ==
LOC: ER 22:42 → NP 22:59
PROVIDERS: Admitting Provider Psychiatry & Neurology Psychiatry; Emergency Provider Emergency Medicine; Visit Provider Psychiatry & Neurology Psychiatry
DX: T46.3X2A Poisoning by coronary vasodilators, intentional self-harm, initial encounter (principal); Z63.0 Problems in relationship with spouse or partner; F32.A Depression, unspecified; F10.10 Alcohol abuse, uncomplicated; F43.25 Adjustment disorder with mixed disturbance of emotions and conduct
CPT/HCPCS: 71045; 80053; 80306; 80307; 85025; 93005; 96360; 97150; 97165; 99285; J7030

== ENCOUNTER 2024-04-25 23:45 | Emergency (ER) | payer SELFPAY ==
[2024-04-25 23:49] VITALS: BP 142/87; PULSE 76; RESP 14; TEMP 36.6; O2SAT 98; BMI 25.7
--- NOTE | 2024-04-25 23:51 | ECG_ITS ---
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 Measurements Intervals [place] Rate: 73 P: 52 PA: 202 QRS: 20 QRSD: 86 T: 37 QT: 410 QTc: 455 Interpretive Statements SINUS RHYTHM Compared to ECG 11/29/2021 21:22:00 No significant changes Electronically Signed On 04-26-2024 15:47:14 CDT by Sky Herrera M.D. [id number]
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
--- NOTE | 2024-04-26 00:04 | ED_ITS ---
HPI - Headache General: Chief Complaint: Headache Stated Complaint: head pain Time Seen by Provider: 04/25/24 23:48 PFSH ED PFSH: Social History Smoking and tobacco/nicotine status: never used tobacco/nicotine Course Vital Signs: Vital signs: Vital Signs Temperature 97.8 F 04/25/24 23:49 Pulse Rate 76 04/25/24 23:49 Respiratory Rate 14 04/25/24 23:49 Blood Pressure 142/87 04/25/24 23:49 Pulse Oximetry 98 04/25/24 23:49 Oxygen Delivery Me thod Room Air 04/25/24 23:49 Discharge Plan Discharge Condition: Stable Prescriptions: No Action No Known Home Medications Coding Level of Care Code ED Supervisor Estimator And Drafter for Que Daly
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
[2024-04-26 00:36] VITALS: BP 142/87; PULSE 69; O2SAT 99
== END 2024-04-26 01:19 | disposition home or self-care (01) ==
PROVIDERS: Emergency Provider Physician Assistant
DX: S09.8XXA Other specified injuries of head, initial encounter (principal); V86.59XA Driver of other special all-terrain or other off-road motor vehicle injured in nontraffic accident, initial encounter
CPT/HCPCS: 70450; 72125; 93005; 99284

== ENCOUNTER 2024-07-21 14:12 | Emergency (ER) | payer SELFPAY ==
[2024-07-21 14:16] VITALS: BP 137/84; PULSE 77; RESP 16; TEMP 36.3; O2SAT 100
[2024-07-21] MEDS: cefTRIAXone 1,000 MG in water for injection-sterile 2.1 ML 2.1 MG IM (15:29)
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
[2024-07-21] MEDS: tetanus-dipt-pertussis 0.5 mL SDV IM (15:56)
[2024-07-21 15:57] VITALS: BP 106/63; PULSE 63; RESP 16; TEMP 36.3; O2SAT 98
== END 2024-07-21 15:58 | disposition home or self-care (01) ==
PROVIDERS: Emergency Provider Physician Assistant
DX: L03.312 Cellulitis of back [any part except buttock and flank] (principal); Z23 Encounter for immunization
CPT/HCPCS: 90715; 96372; 99284; J0696

== ENCOUNTER 2024-11-19 08:23 | Emergency (ER) | payer SELFPAY ==
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
[2024-11-19 09:03] VITALS: BP 127/85; PULSE 71; RESP 18; TEMP 36.9; O2SAT 98; BMI 27.4
--- NOTE | 2024-11-19 10:47 | ED_ITS ---
HPI - Extremity Injury (Lower) General: Chief Complaint: Extremity Injury, Lower Stated Complaint: Left ankle injury Time Seen by Provider: 11/19/24 08:26 Source: patient Mode of arrival: ambulatory (with crutches) Limitations: no limitations History of Present Illness: Patient is a 43-year-old male presents to ED today with a complaint of left foot and ankle pain that he sustained yesterday after jumping from a 10 foot building. He is ambulatory here with the help of crutches. He denies any other injury sustained. Denies numbness, tingling, loss of sensation. MD complaint: ankle injury and foot injury Onset (ago): day(s) (yesterday) Injury: Left: ankle and foot Place: work Severity: moderate Relieving factors: immobilization Exacerbating factors: weight bearing, movement and palpation Context: direct blow and jumping Associated symptoms: Reports inability to bear weight Other symptoms: none Related Data Allergies Allergy/AdvReac Type Severity Reaction Status Date / Time No Known Allergies Allergy Verified 07/21/24 14:19 Review of Systems Musc: Reports: extremity pain (L foot) and joint pain (L ankle) Neuro: Denies: numbness in extremities, weakness in extremities or sensory changes PFSH ED PFSH: Social History Smoking and tobacco/nicotine status: never used tobacco/nicotine Physical Exam Const: COMMON NORMALS: no acute distress, average body habitus, patient oriented x3, no limitations, healthy appearing, alert and well nourished GENERAL APPEARANCE: cooperative ORIENTATION/CONSCIOUSNESS: Yes awake, Yes oriented to person, Yes oriented to place and Yes oriented to time HENMT: COMMON NORMALS: normocephalic and atraumatic HEAD & SCALP: normal to inspection, normocephalic and atraumatic Neck/C-Spine: COMMON NORMALS: full ROM CERVICAL SPINE: Yes cervical ROM normal and No Cervical spine tenderness Back/Pelvis: COMMON NORMALS: thoracic and lumbar spine normal to inspection and no thoracic nor lumbar tenderness Extremity: COMMON NORMALS: capillary refill normal, no clubbing, cyanosis or edema, no calf tenderness and no pedal edema GENERAL: Yes normal exam except as noted LEFT LOWER EXTREMITY: Yes ankle joint (TTP and mild edema/ecchymosis L medial ankle; no deformity) Left ankle: Yes neurovascular exam (normal) and Yes foot & digits (TTP proximal L foot; no obvious edema or deformity) Left foot and digits: Yes neurovascular exam (normal) Neuro: COMMON NORMALS: patient oriented x3, moves all extremities, no focal motor deficits and no sensory deficits noted SENSORIUM/ORIENTATION: Yes alert, Yes oriented to person, Yes oriented to place and Yes oriented to time Course Vital Signs: Vital signs: Vital Signs Temperature 98.4 F 11/19/24 09:03 Pulse Rate 71 11/19/24 09:03 Respiratory Rate 18 11/19/24 09:03 Blood Pressure 127/85 11/19/24 09:03 Pulse Oximetry 98 11/19/24 09:03 Oxygen Delivery Me thod Room Air 11/19/24 09:03 MDM - Extremity Injury (Lower) Medical Decision Making I do not visualize any obvious fractures on patient's foot and ankle XRs. He is already utilizing crutches brought from home. Will LINCOLN wrap. Recommend other conservative therapies at home. Recommend follow-up with primary care in a week or 2 if symptoms do not seem to be improving. Medical Records I reviewed the patient's medical records. Lab Data Radiology Impressions Ankle X-Ray 11/19/24 08:54 IMPRESSION: No acute findings. XR interpretation done by ED provider, pending radiology final review Discharge Plan Discharge Patient Disposition: Home Clinical Impression: Contusion of left foot Qualifiers: Encounter type: initial encounter Qualified Code(s): S90.32XA - Contusion of left foot, initial encounter Condition: Stable Discharge Orders: Discharge ED (Routine); Ordered 11/19/24 Ordered By: Eileen Madsen Patient Instructions: Foot Contusion (ED) Activity Restrictions/Additional Instructions: As discussed, you may ice and elevate the extremity. You may use [id number] anti-inflammatories. Use your LINCOLN wrap to help with compression. You already have crutches you may use for weightbearing. Please follow-up with primary care in 1 to 2 weeks if symptoms do not seem to be improving. As we discussed, I will contact you if radiology over reads any discrepancies in your x-rays today. Coding Level of Care Code ED [employer] for [employer]
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
[2024-11-19 11:23] VITALS: BP 142/71; PULSE 72; O2SAT 98
== END 2024-11-19 11:21 | disposition home or self-care (01) ==
PROVIDERS: Emergency Provider Physician Assistant
DX: S90.32XA Contusion of left foot, initial encounter (principal); W17.89XA Other fall from one level to another, initial encounter
CPT/HCPCS: 73610; 73630; 99283